=== PATIENT | male | born 1955 | race Caucasian/White ===

== ENCOUNTER → 2017-04-17 | Day surgery (SDC) | payer BC ==
--- NOTE | 2017-04-16 10:42 | MH ---
cc: Shad ROMO M.D. DATE OF ADMISSION 04/17/2017 ADMITTING DIAGNOSIS Torn medial meniscus left knee now for arthroscopy left knee. ADMISSION HISTORY AND PHYSICAL This pleasant morbid obesity 61 year-old male is being admitted today for arthroscopy left knee. OTHER PAST HISTORY 1. He has had pain in his knee for quite a few months now and had an MRI which did reveal a torn medial meniscus. 2. He has problems with his left ankle and foot from a calcaneal fracture that happened 10 years ago for which he underwent open reduction, internal fixation with plate and screws and has now developed subtalar arthritis. Otherwise, he has no medical problems. MEDICATIONS He takes no medications other than for anti-inflammatory. PAST SURGICAL HISTORY The on surgery he has had is on his heel. REVIEW OF SYSTEMS Noncontributory FAMILY HISTORY Noncontributory SOCIAL HISTORY He does not smoke or drink. ALLERGIES He has no known allergies. PHYSICAL EXAMINATION GENERAL: We find a 61-year-old male well-developed, well-nourished, oriented x 3, complaining of pain in his left knee and heel. VITAL SIGNS: Blood pressure 122/78, pulse 80 and regular, respirations 16, temperature 97.8, pulse oximetry 97% on room air. HEENT: Pupils equal, round, reactive to light and accommodation, extraocular movements intact. Ears, nose and throat clear. NECK: Supple. LUNGS: Clear. HEART: Regular rate. ABDOMEN: Soft, positive bowel sounds, non-tender. EXTREMITIES: Reveal his left knee to be tender about the medial and lateral joint margins. He is neurovascularly intact to his toes. IMPRESSION AT THIS TIME Torn medial meniscus left knee. PLAN Admission for arthroscopy left knee today. The patient understands the procedure well and the risks as above. He wishes to proceed with surgery as soon as possible and is given a prescription for postoperative pain control in the office. He understands to use Hibiclens scrub and Bactroban preoperatively. JMD VERENA Glynn/DEBBIE /11:11 AM /10:41 AM
[~2017-04-17] VITALS: Ht 188 cm; Wt 147.9 kg
[~2017-04-17] MED LIST: *ONDANSETRON 4 MG VIAL PERIprocedural Use ONLY ONE; ASPI81CH CHEW; ASPI81TA17 PO; BUPIVACAINE HCL PF 0.25% 30 ML VIAL ONE; CHLORHEXIDINE GLUCONATE 2 % 1 PACK (2 CLOTHS) TOPICAL PRN; CHLORHEXIDINE GLUCONATE 4% SOLN 120 ML BTL TOPICAL SCH; DICL75TA PO; DICLOFENAC SODIUM 37.5 MG/ML VIAL IV PUSH ONE; DO NOT ADM ANY ANTICOAGULANT DRUGS PRN; FAMOTIDINE 20 MG/2 ML VIAL ONE; INSULIN HUMAN REGULAR 1,000 UNITS/10 ML VIAL SQ PRN; KETOROLAC TROMETHAMINE 30 MG/ML (IVP) VIAL IVP PRN; LACTATED RINGER'S 1000 ML INJ 1,000 ML IV SCH; LACTATED RINGER'S 1000 ML IV PRN; MEPERIDINE HCL 50 MG/ML VIAL IM ONE; METOPROLOL TARTRATE 25 MG TAB PO PRN; MIDAZOLAM HCL 2 MG/2 ML VIAL ONE; ONDANSETRON HCL 4 MG/2 ML VIAL IV PRN; ONDANSETRON HCL 4 MG/2 ML VIAL IV PUSH ONE; POVIDONE IODINE 5% (ANTISEPSIS KIT) 4 APPLICATIONS EACH NARE PRN; PROPOFOL 200 MG/20 ML AMP IV ONE; SODIUM CHLORID 0.9% 500 ML IV PRN; ceFAZolin 2 GM PREMIX 50 ML IV SCH; fentaNYL CITRATE 250 MCG/5 ML AMP ONE; oxyCODONE/ACETAMINOPHEN 5 MG/325 MG TAB PO PRN
[2017-04-17 07:03] VITALS: BP 147/87; PULSE 76; RESP 20; TEMP 98.5; O2SAT 96
[2017-04-17 07:25] LABS: BLOOD, URINE NEG (NEG); COMMENT (UR) CULT NOT INDICATED; CULTURE IF INDICATED CULT NOT INDICATED; GLUCOSE,URINE NEG (NEG); KETONE, URINE NEG (NEG); MUCUS URINE FEW /lpf (OCC); NITRITE,URINE NEG (NEG); PH, URINE 5.5 (5.0-8.5); SQUAMOUS EPITHELIAL CELL URINE <1 /hpf (0-5); URINE COLOR YELLOW (YELLW/STRAW)
[2017-04-17 07:31] LABS: AUTOMATED NEUTROPHIL # 2.2 TH/MM3 (1.8-7.7); BASOPHIL % 0.5 % (0.0-2.0); EOSINOPHIL # 0.2 TH/MM3 (0-0.4); EOSINOPHIL % 3.5 % (0.0-4.0); HEMATOCRIT 39.7 % (39.0-51.0); HEMO FLAGS DIFF FINAL; LYMPHOCYTE # 1.6 TH/MM3 (1.0-4.8); MEAN CORPUSCULAR HEMOGLOBIN 28.3 PG (27.0-34.0); MEAN CORPUSCULAR HGB CONC 32.9 % (32.0-36.0); MONO % 9.6 % (0.0-8.0); NEUT % 50.4 % (16.0-70.0); PLATELET COUNT 178 TH/MM3 (150-450); RED BLOOD COUNT 4.62 MIL/MM3 (4.50-5.90); RED CELL DISTRIBUTION WIDTH 13.9 % (11.6-17.2); WHITE BLOOD COUNT 4.4 TH/MM3 (4.0-11.0)
[2017-04-17 07:42] LABS: APTT (PATIENT) 28.7 SEC (24.3-30.1); PROTHROMBIN TIME - PATIENT 10.7 SEC (9.8-11.6)
[2017-04-17 07:47] LABS: ALT (GPT) 36 U/L (12-78); ANION GAP 9 MEQ/L (5-15); AST (GOT) 25 U/L (15-37); BICARBONATE 27.3 MEQ/L (21.0-32.0); BLOOD UREA NITROGEN 23 MG/DL (7-18); CHLORIDE 108 MEQ/L (98-107); GLOMERULAR FILTRATION RATE 79 ML/MIN (>89); POTASSIUM 4.3 MEQ/L (3.5-5.1); SODIUM (NA) 144 MEQ/L (136-145)
[2017-04-17 07:49] LABS: ALKALINE PHOSPHATASE 76 U/L (45-117); TOTAL BILIRUBIN ADULT 0.4 MG/DL (0.2-1.0)
[2017-04-17 10:35] VITALS: BP 131/96; PULSE 66; RESP 20; TEMP 97.5; O2SAT 98
--- NOTE | 2017-04-17 12:41 | MP ---
cc: Shad ROMO M.D. DATE OF SURGERY: 04/17/2017 PREOPERATIVE DIAGNOSIS Internal derangement, left knee. POSTOPERATIVE DIAGNOSIS Torn medial meniscus and chondromalacia weightbearing surface medial femoral condyle, left knee. SURGERY PERFORMED Arthroscopy, excision of posterior horn tear medial meniscus and ArthroCare shaving of chondromalacia grade III medial femoral condyle weightbearing surface. SURGEON Dr. Romo VEHICLE INSPECTOR MERLY Fair ANESTHESIA LMA. PROCEDURE The patient was brought to the operating room and placed on the operating room table in the supine position. After successful induction of general anesthesia, the patient's left leg was prepped and draped in the usual manner. The knee was then placed in a knee farias and tightened. Arthroscopic examination was then performed by making a stab wound over the proximal superior and medial aspect of the patellofemoral joint for insertion of the inflow cannula and fluid, followed by stab wounds over the medial and lateral joint margins respectively for insertion of the arthroscope, shaver and probe. Arthroscopic examination was then performed which revealed an intact lateral compartment, intact anterior cruciate ligament, intact patellofemoral joint, torn posterior horn medical meniscus, and chondromalacia patella grade III weightbearing surface medial femoral condyle 1 cm in diameter. The medial meniscal tear was removed using the ArthroCare cutter, shaver and probe to afford a smooth surface. The weightbearing surface chondromalacia area was shaved smooth using the ArthroCare system. The rest of the knee joint was found to be intact. The wound was irrigated copiously with lactated Ringer's solution. Excess fluid was removed. 10 cc of 0.25% Marcaine plain was inserted into the knee joint. The skin was approximated with interrupted 4-0 nylon suture. Wet and dry dressing was applied to the wound followed by Xeroform gauze, sterile dressing and thigh high Gio wrap. The estimated blood loss was 10 cc. Sponge and suture counts were correct. The patient tolerated the procedure well and left the operating room in satisfactory condition. Due to the patient's morbid obesity with BMI of over 41, assistance was needed by an PHOTOGRAMMETRY AIRPLANE PILOT. MERLY Fair was present during the entire procedure and he did the patient positioning and helped with the procedure and held the leg which was quite heavy. The medical necessity of the nurse practitioner first leveler was indicated this case due to the patient's surgical complexly due to his morbid obesity. During the surgical case a central sterilization technician was also working the back table while my grants and contracts assistant MERLY was directly assisting me. J. MD VERENA Augustin/EMMA /9:20 AM /12:33 PM
--- NOTE | 2017-04-17 14:52 | EKG ---
Date Performed: 04/17/2017 Time Performed: 07:12:11 PTAGE: 61 years EKG: Sinus rhythm LOW QRS VOLTAGE IN PRECORDIAL LEADS BORDERLINE ECG NO PREVIOUS TRACING DOCTOR: Rayray Lopez Interpretating Date/Time 04/17/2017 14:50:27
== END | disposition home or self-care (01) ==
LOC: HSDC 06:17
PROVIDERS: ATTEND Surgery
DX: M23.222 Derangement of posterior horn of medial meniscus due to old tear or injury, left knee (principal); M94.262 Chondromalacia, left knee; E66.01 Morbid (severe) obesity due to excess calories; M17.12 Unilateral primary osteoarthritis, left knee; Z68.41 Body mass index [BMI] 40.0-44.9, adult; Z01.810 Encounter for preprocedural cardiovascular examination; Z01.818 Encounter for other preprocedural examination
CPT/HCPCS: 01400; 29881; 80053; 81001; 85025; 85610; 85730; 93005; J0690; J1130; J2250; J2405; J3010; J7120